=== PATIENT | male | born 1930 | race Caucasian/White ===

== ENCOUNTER 2019-07-31 18:13 | Observation (INO) | payer MEDICARE ==
[~2019-07-31] VITALS: Ht 175.3 cm; Wt 102.1 kg
[2019-07-31 18:56] LABS: BASOPHILS 0.5 % (0-2); EOSINOPHILS 2.4 % (0-7); HEMATOCRIT 41.1 % (42.0-54.0); HEMOGLOBIN 13.2 g/dL (13.5-17.5); IMMATURE GRANULOCYTES 1.5 % (0-5); LYMPHOCYTES 14.9 % (15-50); MCH 32.8 pg (26.0-34.0); MCHC 32.1 g/dL (31.0-37.0); MEAN PLATELET VOLUME 11.5 fL (7.4-10.4); MONOCYTES 6.7 % (2-11); PLATELET COUNT 148 10x3/uL (130-400); RBC 4.03 10x6/uL (4.20-6.10); RDW 15.7 % (11.5-14.5); WBC 5.5 10x3/uL (4.8-10.8)
[2019-07-31 19:10] LABS: ANION GAP 14.5 mmol/L (8-16); CALCIUM 8.6 mg/dL (8.5-10.1); CREATININE - SERUM 1.3 mg/dL (0.6-1.3); POTASSIUM - SERUM 4.5 mmol/L (3.5-5.1)
[2019-07-31 19:19] LABS: APPEARANCE CLEAR (CLEAR); BILIRUBIN NEGATIVE (NEGATIVE); COLOR YELLOW (YELLOW); GLUCOSE NEGATIVE (NEGATIVE); KETONE NEGATIVE (NEGATIVE); NITRITE NEGATIVE (NEGATIVE); PROTEIN NEGATIVE (NEGATIVE); UROBILINOGEN NORMAL (NORMAL)
[2019-07-31 19:20] LABS: BILIRUBIN - TOTAL 0.42 mg/dL (0.2-1.3); PROTEIN - SERUM 6.5 g/dL (6.4-8.2)
[2019-07-31 19:44] LABS: CKMB 1.2 U/L (0.0-3.6); CREATINE KINASE 54 UL (21-232); MAGNESIUM - SERUM 2.1 mg/dL (1.8-2.4); PRO BNP 1545 pg/mL (0-450)
[2019-07-31 19:45] LABS: TROPONIN-I < 0.017 ng/mL (0.000-0.060)
[2019-07-31 23:13] VITALS: BP 148/85
--- NOTE | 2019-08-01 | NUR ---
ADMITTED TO ROOM FROM ER ALERT AND ORIENTIATED, ANSWERS QUESTIONS APPROATELY AT THIS TIME, ORIENTIATED TO ROOM CALL LIGHT IN REACH, SEE ASSESSMENT, FALL PRECAUTIONS I PLACE
[2019-08-01 01:18] VITALS: BP 171/81; BMI 33.3
[2019-08-01 04:00] VITALS: BP 107/71
[2019-08-01 07:12] LABS: BASOPHILS 0.4 % (0-2); EOSINOPHILS 4.2 % (0-7); HEMOGLOBIN 13.2 g/dL (13.5-17.5); IMMATURE GRANULOCYTES 1.5 % (0-5); LYMPHOCYTES 14.5 % (15-50); MCH 32.3 pg (26.0-34.0); MCHC 32.2 g/dL (31.0-37.0); MCV 100.2 fL (80.0-100.0); MEAN PLATELET VOLUME 11.6 fL (7.4-10.4); MONOCYTES 9.2 % (2-11); NEUTROPHILS 70.2 % (40-80); PLATELET COUNT 139 10x3/uL (130-400); RBC 4.09 10x6/uL (4.20-6.10); RDW 15.8 % (11.5-14.5); WBC 4.6 10x3/uL (4.8-10.8)
[2019-08-01 07:20] LABS: APTT 27.5 SECONDS (22.8-39.4); INR 1.04 (0.85-1.17); PROTIME 13.6 SECONDS (11.6-15.0)
[2019-08-01 07:24] LABS: % SATURATION 39 % (15-55); IRON 94 ug/dl (35-150); TOTAL IRON BIND CAPACITY 239 ug/dl (260-445); UNSAT IRON BIND CAPACITY 145 ug/dl (150-375)
[2019-08-01 07:56] LABS: ANION GAP 12.3 mmol/L (8-16); CALCIUM 8.8 mg/dL (8.5-10.1); CARBON DIOXIDE 26.9 mmol/L (21.0-32.0); CREATININE - SERUM 1.3 mg/dL (0.6-1.3); MAGNESIUM - SERUM 2.2 mg/dL (1.8-2.4); PHOSPHOROUS 3.1 mg/dL (2.5-4.9); POTASSIUM - SERUM 4.2 mmol/L (3.5-5.1); THYROID STIMULATING HORMONE 1.66 uIU/mL (0.36-3.74)
[2019-08-01 09:25] VITALS: BP 165/67
--- NOTE | 2019-08-01 09:30 | NUR ---
AWAKE AND ALERT. ORIENTED TO SELF AND PLACE. LUNGS ARE CLEAR BILATERALLY, NO COUGH NOTED. SKIN IS INTACT WTIHOUT REDNESS. SL TO LEFT WRIST IS PATETN WITHOUT REDNESS AT INSERTION SITE. ATE OVER HALF OF BREAKFAST. DENIES NEEDS.
--- NOTE | 2019-08-01 12:40 | NUR ---
Rehab Prescreening Consult recieved and the chart has been reviewed. He is [facility] and will require a preauth. He will require a PT and an OT eval. He has a PT,OT and ST eval ordered but still pending. Discussed with the CM Che Rushing RN Clinical Liaison, Rehab
[2019-08-01 13:13] LABS: LDL-HDL RATIO 1.9 ratio (1.5-3.5)
[2019-08-01 13:18] VITALS: BP 164/88
[2019-08-01] MEDS ORDERED: BAYER CHEWABLE81 MG PO (14:31)
--- NOTE | 2019-08-01 15:20 | NUR ---
OFF UNIT VIA BED FOR CT.
--- NOTE | 2019-08-01 16:00 | NUR ---
RETURNED FROM CT SCAN. AMBULATED TO WITH ONE PERSON ASSIST. INCONTINENT OF URINE. SKIN CARE PER STAFF. REPOSITIONED IN BED FOR COMFORT.
--- NOTE | 2019-08-01 16:30 | NUR ---
UP TO BR WITH ONE PERSON ASSIST. INCONTINENT OF URINE. SKIN CARE PER STAFF. REPOSITIONED IN BED FOR COMFORT. NO FURTHER NEEDS NOTED.
--- NOTE | 2019-08-01 17:30 | NUR ---
ATE MOST OF SUPPER WITH SET UP ASSISTANCE. NO CHANGES NOTED. DENIES NEEDS.
[2019-08-01 17:57] VITALS: BP 126/81
[2019-08-01 20:00] VITALS: BP 162/77
--- NOTE | 2019-08-01 20:00 | NUR ---
ALERT CONFUSED RESTING IN BED, CALLING OUT TO SOMEONE, REORIENTIATED TO PLACE, SEE SHIFT ASSESSMENT, CALL LIGHT IN REACH, FALL PRECAUTIONS IN PLACE
[2019-08-02 05:16] LABS: BASOPHILS 0.4 % (0-2); EOSINOPHILS 4.4 % (0-7); HEMATOCRIT 40.7 % (42.0-54.0); HEMOGLOBIN 13.3 g/dL (13.5-17.5); IMMATURE GRANULOCYTES 1.5 % (0-5); LYMPHOCYTES 16.3 % (15-50); MCH 32.7 pg (26.0-34.0); MCHC 32.7 g/dL (31.0-37.0); MEAN PLATELET VOLUME 11.5 fL (7.4-10.4); MONOCYTES 8.5 % (2-11); NEUTROPHILS 68.9 % (40-80); PLATELET COUNT 137 10x3/uL (130-400); RBC 4.07 10x6/uL (4.20-6.10); RDW 15.7 % (11.5-14.5); WBC 4.8 10x3/uL (4.8-10.8)
[2019-08-02 05:37] LABS: ANION GAP 11.2 mmol/L (8-16); CALCIUM 8.5 mg/dL (8.5-10.1); CARBON DIOXIDE 26.7 mmol/L (21.0-32.0); CREATININE - SERUM 1.5 mg/dL (0.6-1.3); MAGNESIUM - SERUM 2.2 mg/dL (1.8-2.4); PHOSPHOROUS 3.5 mg/dL (2.5-4.9); POTASSIUM - SERUM 3.9 mmol/L (3.5-5.1)
--- NOTE | 2019-08-02 07:37 | NUR ---
AWAKE AND ALERT. ORIENTED TO SELF AND PLACE. LUNGS ARE CLEAR BILATERALLY, NO COUGH NOTED. SKIN IS INTACT WTIHOUT REDNESS. NO IV ACCESS AT THIS TIME. DENIES NEEDS.
--- NOTE | 2019-08-02 08:49 | EC ---
PATIENT:JENN DE LUNA DATE OF SERVICE: 07/31/19 SEX: M MEDICAL RECORD: [id number] DATE OF : [birth year] LOCATION:[facility] AGE OF PATIENT: 89 ADMISSION DATE: 07/31/19 REFERRING PHYSICIAN: INTERPRETING PHYSICIAN: JOHNNY STONE MD ECHOCARDIOGRAM REPORT ECHO CHARGES 4 ECHO COMPLETE Date: 08/01/19 CLINICAL DIAGNOSIS: TIA HX CAD/CABG ECHOCARDIOGRAPHIC MEASUREMENTS (adult normal given) AC root (d.<3.7cm) 4.6 cm LV Septum d (<1.2 cm> 1.5 cm Valve Excursion 2.3 cm LV Septum (systole) 1.7 cm Left Atria (s.<4.0cm> 5.3 cm LVPW d(<1.2cm) 1.9 cm RV (d.<2.3cm) 4.4 cm LVPW (sytole) 2.2 cm LV diastole(<5.6CM) 5.0 cm MV E-F(>70mm/sec) cm LV systole 3.2 cm LVOT Diameter 2.0 cm MV exc.(>10mm) cm Est.ejection fraction (50-75%) % DOPPLER: LVIT cm/sec A 91.0 cm/sec E 42.0 cm/sec LA cm/sec RVSP 18 mmHg LVOT cm/sec AOP1/2T m/s Asc. Ao cm/sec RVOT 59 cm/sec RA cm/sec PA 116 cm/sec AV Gradient Peak mmHg AV Mean mmHg AV Area 2.6 cm MV Gradient Peak 4.23 mmHg MV Mean 1.53 mmHg MV Area cm COMMENTS: Case Management Manager: 2 ARON LOPEZ Chain Saw Driver: 3 Dr. Dash TAPE# PACS Pericardial Effusion N DATE OF SERVICE: 08/01/2019 Adequate 2D echo, color flow, spectral Doppler, and M-mode. LVH is present. LV internal dimension is normal. Wall motion is normal. EF is greater than or equal to 55%. Aortic valve sclerosis without stenosis by Doppler interrogation. Left atrium is normal 5.3 cm. Mitral valve shows prolapse. Mild MR. Right-sided chambers grossly normal. Trace TR. TRANSINT:[id number] Voice Confirmation ID: [id number] DOCUMENT ID: [id number] ECHOCARDIOGRAM REPORT [id number] JENN DE LUNA JOHNNY STONE MD at 0849 CC: [id number] DICTATION DATE: 08/01/19 1605 [facility]: 08/02/19 0059 ADM IN [place] [id number] [place] [id number]
[2019-08-02 09:29] VITALS: BP 116/83
[2019-08-02] MEDS ORDERED: ASPIRIN325 MG PO (11:33)
[2019-08-02 12:23] VITALS: BP 156/81
--- NOTE | 2019-08-02 12:30 | NUR ---
ASSISTED UP TO SIDE OF BED FOR LUNCH. DAUGHTER, JAVIER AT BEDSIDE.
--- NOTE | 2019-08-02 13:35 | MORECARE ---
CASE MANAGEMENT DISCHARGE SUMMARY PATIENT: JENN DE LUNA UNIT: [id number] ADM DATE: 07/31/19 AGE: 89 : [birth year] SEX: M ROOM/BED: D.2215 AUTHOR: MANSI YU PHYSICIAN: REFERRING PHYSICIAN: JOHNNY CLEMENS MD DATE OF SERVICE: 08/02/19 Discharge Plan Patient Name: JENN DE LUNA Facility: [facility]:[place] : 1930 Planned Disposition: Home or Self Care Anticipated Discharge Date: Discharge Date: Expected LOS: Initial Reviewer: [id number] Initial Review Date: 08/01/2019 Generated: 08/02/19 2:35 pm DCP- Discharge Planning Updated by [email or web address]: Celena Waddell on 08/01/19 3:[address] SCHULTZ GIVEN AND EXPLAINED, COPY PLACED IN CHART DCPIA - Discharge Planning Initial Assessment Updated by [email or web address]: Celena Waddell on 08/02/19 1:33 pm * Is the patient Alert and Oriented? Yes * How many steps to enter\exit or inside your home? * PCP NONE * Pharmacy [facility] * Preadmission Environment Home with Family * ADLs Independent * Equipment None * Additional services required to return to the preadmission environment? No * Can the patient safely return to the preadmission environment? Yes * Has this patient been hospitalized within the prior 30 days at any hospital? No External Providers External Provider: OTHER-OTHER Next Contact Date: Service Request Date: Service Type: Resolution: Reviewer: Comments: Coverage Notice Reviewer: [id number] - Celena Waddell Notice Issued Date-Time: 08/01/2019 16:50 Notice Type: Medicare Outpatient Observation Notice Notice Delivered To: Patient Relationship to Patient: Irs Agent Name: Delivery Method: HAND - Hand Delivered Vonnie Days: Prior Verbal Notification: Recipient Understood Notice: Yes Recipient Signature: Yes Med Rec Note Co-signed by Attending: Coverage Notice Comment: SCHULTZ GIVEN AND EXPLAINED COPY PLACED ON CHART Patient Name: JENN DE LUNA Page [id number] at 1335 All edits/amendments must be made on the electronic document DICTATION DATE: 08/02/19 1335 GRADING MACHINE OPERATOR: DM 08/02/191334 RPT#: [id number] DC DATE: STATUS: ADM IN [facility] [address] [place] [address] END OF REPORT
--- NOTE | 2019-08-02 13:42 | MORECARE ---
CASE MANAGEMENT DISCHARGE SUMMARY PATIENT: JENN DE LUNA UNIT: [id number] ADM DATE: 07/31/19 AGE: 89 : [birth year] SEX: M ROOM/BED: D.2215 AUTHOR: MANSI YU PHYSICIAN: REFERRING PHYSICIAN: JOHNNY CLEMENS MD DATE OF SERVICE: 08/02/19 Discharge Plan Patient Name: JENN DE LUNA Facility: [facility]:[place] : 1930 Planned Disposition: Home or Self Care Anticipated Discharge Date: Discharge Date: Expected LOS: Initial Reviewer: [id number] Initial Review Date: 08/01/2019 Generated: 08/02/19 2:42 pm Comments DCP- Discharge Planning Updated by [email or web address]: Celena Waddell on 08/02/19 12:[address] Patient Name: JENN DE LUNA Admission Status: ER Accout number: [id number] Admission Date: 07-31-2019 : 1930 Admission Diagnosis: Attending: ELLEN Current LOS: 2 Anticipated DC Date: Planned Disposition: Home or Self Care Primary Insurance: [facility] MEDICARE SOLUTIONS Discharge Planning Comments: CM met with patient to complete initial dc planning assessment. CM educated patient on the CM role and verbal consent given by patient to complete assessment. Patient lives at home where he is independent with his care at [facility]. He goes to the dinning room at [facility] for food. At discharge patient plans to return home and feels this is a safe discharge. CM discussed availability of home health, rehab services, and medical equipment. He does not use any DME. he does not have a PCP. His daughter is here from out of state and concerned with him having surgery at [facility] and recovering and not being here. Patient and daughter will let me know if there is anything that I need to do for them with DC planning. Patient denied known discharge needs at this time. CM will continue to follow and will assist as needed with dc plans/needs. Heating Worker: Celena Waddell DCP- Discharge Planning Updated by [email or web address]: Celena Waddell on 08/01/19 3:[address] SCHULTZ GIVEN AND EXPLAINED, COPY PLACED IN CHART DCPIA - Discharge Planning Initial Assessment Updated by [email or web address]: Celena Waddell on 08/02/19 1:33 pm * Is the patient Alert and Oriented? Yes * How many steps to enter\exit or inside your home? * PCP NONE * Pharmacy [facility] * Preadmission Environment Home with Family * ADLs Independent * Equipment None * Additional services required to return to the preadmission environment? No * Can the patient safely return to the preadmission environment? Yes * Has this patient been hospitalized within the prior 30 days at any hospital? No Coverage Notice Reviewer: [id number] - Celena Waddell Notice Issued Date-Time: 08/01/2019 16:50 Notice Type: Medicare Outpatient Observation Notice Notice Delivered To: Patient Relationship to Patient: Waste And Batting Waste Chopper Name: Delivery Method: HAND - Hand Delivered Vonnie Days: Prior Verbal Notification: Recipient Understood Notice: Yes Recipient Signature: Yes Med Rec Note Co-signed by Attending: Coverage Notice Comment: SCHULTZ GIVEN AND EXPLAINED COPY PLACED ON CHART Last DP export: 08/02/19 12:35 p Patient Name: JENN DE LUNA Page [id number] at 1342 All edits/amendments must be made on the electronic document DICTATION DATE: 08/02/[address] JUSTICE: JIMMY 08/02/19 1342 RPT#: [id number] DC DATE: STATUS: ADM IN [facility] [address] [place] [address] END OF REPORT
--- NOTE | 2019-08-02 13:50 | MORECARE ---
CASE MANAGEMENT DISCHARGE SUMMARY PATIENT: JENN DE LUNA UNIT: [id number] ADM DATE: 07/31/19 AGE: 89 : [birth year] SEX: M ROOM/BED: D.2215 AUTHOR: AIMEEDOC PHYSICIAN: REFERRING PHYSICIAN: JOHNNY CLEMENS MD DATE OF SERVICE: 08/02/19 Discharge Plan Patient Name: JENN DE LUNA Facility: [facility]:[place] : 1930 Planned Disposition: Home or Self Care Anticipated Discharge Date: Discharge Date: Expected LOS: Initial Reviewer: [email or web address] Initial Review Date: 08/01/2019 Generated: 08/02/19 2:50 pm Comments DCP- Discharge Planning Updated by [email or web address]: Celena Bairon on 08/02/19 12:[address] JAVIER CLARK (DAUGHTER) [phone]- WAS THE ONE I TALKED TO. SHE IS IN [place]OWN BRIAN ANGELA (DAUGHTER) [phone] SURESH (SON)[phone] JENN (SON) [phone] DCP- Discharge Planning Updated by [email or web address]: Celena Waddell on 08/02/19 12:[address] Patient Name: JENN DE LUNA Admission Status: ER Accout number: [id number] Admission Date: 07-31-2019 : 1930 Admission Diagnosis: Attending: ELLEN Current LOS: 2 Anticipated DC Date: Planned Disposition: Home or Self Care Primary Insurance: [facility] MEDICARE SOLUTIONS Discharge Planning Comments: CM met with patient to complete initial dc planning assessment. CM educated patient on the CM role and verbal consent given by patient to complete assessment. Patient lives at home where he is independent with his care at [facility]. He goes to the dinning room at [facility] for food. At discharge patient plans to return home and feels this is a safe discharge. CM discussed availability of home health, rehab services, and medical equipment. He does not use any DME. he does not have a PCP. His daughter is here from out of state and concerned with him having surgery at [facility] and recovering and not being here. Patient and daughter will let me know if there is anything that I need to do for them with DC planning. Patient denied known discharge needs at this time. CM will continue to follow and will assist as needed with dc plans/needs. Laboratory Phlebotomist: Celena Waddell DCP- Discharge Planning Updated by [email or web address]: Celena Waddell on 08/01/19 3:[address] SCHULTZ GIVEN AND EXPLAINED, COPY PLACED IN CHART DCPIA - Discharge Planning Initial Assessment Updated by [email or web address]: Celena Waddell on 08/02/19 1:33 pm * Is the patient Alert and Oriented? Yes * How many steps to enter\exit or inside your home? * PCP NONE * Pharmacy [facility] * Preadmission Environment Home with Family * ADLs Independent * Equipment None * Additional services required to return to the preadmission environment? No * Can the patient safely return to the preadmission environment? Yes * Has this patient been hospitalized within the prior 30 days at any hospital? No Coverage Notice Reviewer: [id number] Gabriella Waddell Notice Issued Date-Time: 08/01/2019 16:50 Notice Type: Medicare Outpatient Observation Notice Notice Delivered To: Patient Relationship to Patient: Joint Cleaning Machine Operator Name: Delivery Method: HAND - Hand Delivered Vonnie Days: Prior Verbal Notification: Recipient Understood Notice: Yes Recipient Signature: Yes Med Rec Note Co-signed by Attending: Coverage Notice Comment: SCHULTZ GIVEN AND EXPLAINED COPY PLACED ON CHART Last DP export: 08/02/19 12:43 p Patient Name: JENN DE LUNA Page [id number] at 1350 All edits/amendments must be made on the electronic document DICTATION DATE: 08/02/19 1350 SOCIAL SERVICES TECHNICIAN: JIMMY 08/02/19 1350 RPT#: [id number] DC DATE: STATUS: ADM IN [facility] [address] [place] [address] END OF REPORT
[2019-08-02 14:19] VITALS: Ht 175.3 cm; Wt 102.1 kg
[2019-08-02] MEDS ORDERED: PRAVACHOL40 MG PO (15:31)
--- NOTE | 2019-08-02 15:42 | MORECARE ---
CASE MANAGEMENT DISCHARGE SUMMARY PATIENT: JENN DE LUNA UNIT: [id number] ADM DATE: 07/31/19 AGE: 89 : [birth year] SEX: M ROOM/BED: D.2215 AUTHOR: AIMEEDOC PHYSICIAN: REFERRING PHYSICIAN: JOHNNY CLEMENS MD DATE OF SERVICE: 08/02/19 Discharge Plan Patient Name: JENN DE LUNA Facility: [facility]:[place] : 1930 Planned Disposition: Home or Self Care Anticipated Discharge Date: Discharge Date: Expected LOS: Initial Reviewer: [email or web address] Initial Review Date: 08/01/2019 Generated: 08/02/19 4:42 pm Comments DCP- Discharge Planning Updated by [email or web address]: Celena Waddell on 08/02/19 2:[address] PATIENT WILL BE DISCHARGING HOME TODAY, HE HAS CHOOSEN NOT TO DO SURGERY AT THIS TIME DCP- Discharge Planning Updated by [email or web address]: Celena Waddell on 08/02/19 12:[address] GENE EDUARDO (DAUGHTER) [phone] WAS THE ONE I TALKED TO. SHE IS [place] BRIAN ANGELA (DAUGHTER) [phone] SURESH (SON)[phone] JENN (SON) [phone] DCP- Discharge Planning Updated by [id number]: Celena Waddell on 08/02/19 12:[address] Patient Name: JENN DE LUNA Admission Status: ER Accout number: [id number] Admission Date: 07-31-2019 : 1930 Admission Diagnosis: Attending: ELLEN Current LOS: 2 Anticipated DC Date: Planned Disposition: Home or Self Care Primary Insurance: [facility] MEDICARE SOLUTIONS Discharge Planning Comments: CM met with patient to complete initial dc planning assessment. CM educated patient on the CM role and verbal consent given by patient to complete assessment. Patient lives at home where he is independent with his care at [facility]. He goes to the dinning room at [facility] for food. At discharge patient plans to return home and feels this is a safe discharge. CM discussed availability of home health, rehab services, and medical equipment. He does not use any DME. he does not have a PCP. His daughter is here from out of state and concerned with him having surgery at [facility] and recovering and not being here. Patient and daughter will let me know if there is anything that I need to do for them with DC planning. Patient denied known discharge needs at this time. CM will continue to follow and will assist as needed with dc plans/needs. Adding Machine Mechanic: Celena Waddell DCP- Discharge Planning Updated by [email or web address]: Celena Waddell on 08/01/19 3:[address] SCHULTZ GIVEN AND EXPLAINED, COPY PLACED IN CHART DCPIA - Discharge Planning Initial Assessment Updated by [email or web address]: Celena Waddell on 08/02/19 1:33 pm * Is the patient Alert and Oriented? Yes * How many steps to enter\exit or inside your home? * PCP NONE * Pharmacy [facility] * Preadmission Environment Home with Family * ADLs Independent * Equipment None * Additional services required to return to the preadmission environment? No * Can the patient safely return to the preadmission environment? Yes * Has this patient been hospitalized within the prior 30 days at any hospital? No Coverage Notice Reviewer: [id number] - Celena Waddell Notice Issued Date-Time: 08/01/2019 16:50 Notice Type: Medicare Outpatient Observation Notice Notice Delivered To: Patient Relationship to Patient: Outside Sales Executive Name: Delivery Method: HAND - Hand Delivered Vonnie Days: Prior Verbal Notification: Recipient Understood Notice: Yes Recipient Signature: Yes Med Rec Note Co-signed by Attending: Coverage Notice Comment: SCHULTZ GIVEN AND EXPLAINED COPY PLACED ON CHART Last DP export: 08/02/19 12:50 p Patient Name: JENN DE LUNA Page [id number] at 1542 All edits/amendments must be made on the electronic document DICTATION DATE: 08/02/19 1542 AUTO MECHANIC SUPERVISOR: JIMMY 08/02/19 1542 RPT#: [id number] DC DATE: STATUS: ADM IN [facility] [address] [place] [address] END OF REPORT
[2019-08-02 16:11] VITALS: BP 131/67
--- NOTE | 2019-08-02 16:55 | NUR ---
DISCHARGED TO HOME AMBULATORY WITH FAMILY. DISCHARGE INSTRUCTIONS GIVEN BOTH VERBALLY AND WRITTEN. ALL QUESTIONS ANSWERED. PATIENT AND DAUGHTER VERBALIZED UNDERSTANDING OF SAME. NEEDED PRESCRIPTIONS ESCRIBED TO PHARMACY OF CHOICE. NO IV AT THIS TIME. ALL BELONGINGS WITH PATIENT.
--- NOTE | 2019-08-04 12:34 | MORECARE ---
CASE MANAGEMENT DISCHARGE SUMMARY PATIENT: JENN DE LUNA UNIT: [id number] ADM DATE: 07/31/19 AGE: 89 : [birth year] SEX: M ROOM/BED: D.2215 AUTHOR: AIMEE,DOC PHYSICIAN: REFERRING PHYSICIAN: JOHNNY CLEMENS MD DATE OF SERVICE: 08/04/19 Discharge Plan Patient Name: JENN DE LUNA Facility: [facility]:[place] : 1930 Planned Disposition: Home or Self Care Anticipated Discharge Date: Discharge Date: 08/02/2019 Expected LOS: Initial Reviewer: [email or web address] Initial Review Date: 08/01/2019 Generated: 08/04/19 1:34 pm Comments DCP- Discharge Planning Updated by [email or web address]: Celena Waddell on 08/02/19 2:[address] PATIENT WILL BE DISCHARGING HOME TODAY, HE HAS CHOOSEN NOT TO DO SURGERY AT THIS TIME DCP- Discharge Planning Updated by [email or web address]: Celena Waddell on 08/02/19 12:[address] GENE EDUARDO (DAUGHTER) [phone] WAS THE ONE I TALKED TO. SHE IS [place] BRIAN ANGELA (DAUGHTER) [phone] SURESH (SON)[phone] JENN (SON) [phone] DCP- Discharge Planning Updated by [email or web address]: Celena Waddell on 08/02/19 12:[address] Patient Name: JENN DE LUNA Admission Status: ER Accout number: [id number] Admission Date: 07-31-2019 : 1930 Admission Diagnosis: Attending: ELLEN Current LOS: 2 Anticipated DC Date: Planned Disposition: Home or Self Care Primary Insurance: [facility] MEDICARE SOLUTIONS Discharge Planning Comments: CM met with patient to complete initial dc planning assessment. CM educated patient on the CM role and verbal consent given by patient to complete assessment. Patient lives at home where he is independent with his care at [facility]. He goes to the dinning room at [facility] for food. At discharge patient plans to return home and feels this is a safe discharge. CM discussed availability of home health, rehab services, and medical equipment. He does not use any DME. he does not have a PCP. His daughter is here from out of state and concerned with him having surgery at [facility] and recovering and not being here. Patient and daughter will let me know if there is anything that I need to do for them with DC planning. Patient denied known discharge needs at this time. CM will continue to follow and will assist as needed with dc plans/needs. Electrophysiology Technologist: Celena Waddell DCP- Discharge Planning Updated by [email or web address]: Celena Waddell on 08/01/19 3:[address] SCHULTZ GIVEN AND EXPLAINED, COPY PLACED IN CHART DCPIA - Discharge Planning Initial Assessment Updated by [email or web address]: Celena Waddell on 08/02/19 1:33 pm * Is the patient Alert and Oriented? Yes * How many steps to enter\exit or inside your home? * PCP NONE * Pharmacy [facility] * Preadmission Environment Home with Family * ADLs Independent * Equipment None * Additional services required to return to the preadmission environment? No * Can the patient safely return to the preadmission environment? Yes * Has this patient been hospitalized within the prior 30 days at any hospital? No Coverage Notice Reviewer: [id number] - Celena Waddell Notice Issued Date-Time: 08/01/2019 16:50 Notice Type: Medicare Outpatient Observation Notice Notice Delivered To: Patient Relationship to Patient: Community Outreach Specialist Name: Delivery Method: HAND - Hand Delivered Vonnie Days: Prior Verbal Notification: Recipient Understood Notice: Yes Recipient Signature: Yes Med Rec Note Co-signed by Attending: Coverage Notice Comment: SCHULTZ GIVEN AND EXPLAINED COPY PLACED ON CHART Last DP export: 08/02/19 2:42 p Patient Name: JENN DE LUNA Page [phone] at 1234 All edits/amendments must be made on the electronic document DICTATION DATE: 08/04/19 1234 ACADEMIC SPECIALIST: JIMMY 08/04/19 1234 RPT#: [id number] DC DATE:08/02/19 STATUS: DIS IN [facility] [address] [facility] [place] [address] END OF REPORT
== END 2019-08-02 16:57 | disposition home or self-care (01) ==
LOC: D.ER 18:13 → D.MS 21:34 → OBSVTIME 21:34 → D.MS 08-02 16:57
PROVIDERS: Family Medicine; ADMIT Family Medicine; ATTEND Family Medicine
DX: G45.9 Transient cerebral ischemic attack, unspecified (principal); I65.21 Occlusion and stenosis of right carotid artery; D53.9 Nutritional anemia, unspecified; G62.9 Polyneuropathy, unspecified; M19.90 Unspecified osteoarthritis, unspecified site; E78.5 Hyperlipidemia, unspecified; Z95.1 Presence of aortocoronary bypass graft; I69.354 Hemiplegia and hemiparesis following cerebral infarction affecting left non-dominant side; I10 Essential (primary) hypertension; I25.10 Atherosclerotic heart disease of native coronary artery without angina pectoris